=== PATIENT | male | born 1985 | race Caucasian/White ===

== ENCOUNTER 2020-05-18 21:45 | Emergency (ER) | payer SELFPAY ==
[~2020-05-18] VITALS: Ht 180.3 cm; Wt 80.0 kg
[2020-05-18 23:07] LABS: BASOPHILS % (AUTO) 1 % (0-1); EOSINOPHILS % (AUTO) 1 % (1-7); LYMPHOCYTES % (AUTO) 37 % (22-44); MEAN CORPUSCULAR HEMOGLOBIN 28.3 pg (27.5-34.5); MEAN CORPUSCULAR HGB CONC 33.9 g/dL (33.2-36.2); MEAN PLATELET VOLUME 6.7 fL (7.4-10.4); MONOCYTES % (AUTO) 8 % (2-9); NEUTROPHILS % (AUTO) 54 % (42-75); PLATELET COUNT 287 x10^3/uL (130-400); RED BLOOD COUNT 5.75 x10^6/uL (4.38-5.82); RED CELL DISTRIBUTION WIDTH 13.4 % (9.4-14.8)
[2020-05-18 23:23] LABS: ALANINE AMINOTRANSFERASE 24 U/L (12-78); ALBUMIN 4.2 g/dL (3.4-5.0); CHLORIDE 108 mmol/L (98-107); CREATININE 1.11 mg/dL (0.7-1.3)
[2020-05-18 23:25] LABS: MD NO
[2020-05-18 23:29] LABS: ALKALINE PHOSPHATASE 73 U/L (45-117); ANION GAP 5 mmol/L (5-15); BILIRUBIN,TOTAL 1.7 mg/dL (0.2-1.0); TOTAL PROTEIN 7.8 g/dL (6.4-8.2)
[2020-05-19] LABS: MICROSCOPIC INDICATED
--- NOTE | 2020-05-19 00:24 | NUR ---
pt to room from lobby
--- NOTE | 2020-05-19 00:35 | NUR ---
PT AMBULATES FROM LOBBY TO ROOM WITH STEADY GAIT. DR ANNA AT BS FOR PT HISTORY AND ASSESSMENT. PT ATTACHED TO ALL VS MONITORS. PT VSS AT THIS TIME. PT HAS CALL WAYLON LENTZ. DR ANNA AT BS FOR PT HISTORY AND ASSESSMENT.
[2020-05-19] MEDS ORDERED: KETOROLAC 30 MG/1 ML ONE (00:45)
[2020-05-19] MEDS ORDERED: HYDROcodone/APAP 5/325 TABLET ONE (00:45)
[2020-05-19 00:53] VITALS: BP 125/82
[2020-05-19] MEDS ORDERED: HYDROcodone/APAP 5/325 TABLET PO ONE (01:00)
[2020-05-19] MEDS ORDERED: KETOROLAC 30 MG/1 ML IVPush ONE (01:00)
== END 2020-05-19 01:08 | disposition home or self-care (01) ==
LOC: ED 05-19 00:10
DX: R10.12 Left upper quadrant pain (principal); R10.32 Left lower quadrant pain; R31.29 Other microscopic hematuria; R11.0 Nausea
CPT/HCPCS: 36415; 74176; 80053; 81001; 85025; 96374; 99284; J1885